=== PATIENT | male | born 1950 | race Two or more races ===

== ENCOUNTER 2017-04-19 07:15 | Day surgery (SDC) | END 2017-04-19 14:24 | disposition home or self-care (01) ==

== ENCOUNTER 2017-06-10 22:37 | Inpatient (IN) | END 2017-06-12 12:45 | disposition home or self-care (01) | DRG 603 ==

== ENCOUNTER 2017-08-10 09:42 | Inpatient (IN) | END 2017-08-13 13:45 | disposition home or self-care (01) | DRG 331 ==